=== PATIENT | female | born 2000 | race Caucasian/White ===

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

== ENCOUNTER 2021-11-23 11:35 | Day surgery (SDC) | payer OTHER ==
[2021-11-17 15:50] LABS: Absolute Lymphocytes (CBC) 3.1 K/uL (0.7-4.9); Hematocrit 41.2 % (36.0-45.0); Lymphocytes % 42.7 % (15.3-44.8); MCV 86.7 fL (80-100); MPV 6.8 fL (7.6-11.3); RBC Red Blood Cell Count 4.75 M/uL (3.86-4.86)
[2021-11-17 15:53] LABS: Specific Gravity 1.014 (1.005-1.030); Urine Bilirubin NEGATIVE (Negative); Urine Blood Negative (Negative); Urine Clarity Clear (Clear); Urine Color Colorless (Yellow); Urine Glucose NEGATIVE (Negative); Urine Protein NEGATIVE (Negative); Urine Urobilinogen Normal (Normal); Urine pH 6.5 (5.0-7.0)
[2021-11-22 08:15] LABS: SARS-CoV-2 Antigen Rapid Res Negative (Negative)
[2021-11-23] MEDS ORDERED: Ringers Lactate 1,000 ML IV ONE (11:49)
[2021-11-23] MEDS ORDERED: SCOPOLAMINE HYDROBROMIDE PATCH TD ONE (11:49)
[2021-11-23] MEDS ORDERED: FENTANYL CITR 100 MCG/2 ML ONE ×3 (13:40→16:42)
[2021-11-23] MEDS ORDERED: MIDAZOLAM HCL 2 MG/2 ML INJ ONE (13:41)
[2021-11-23] MEDS ORDERED: NA CHLORIDE 0.9% 2,000 ML ONE (13:41)
[2021-11-23] MEDS ORDERED: SILVER NITRATE 1 APPL TOP ONE (13:41)
[2021-11-23] MEDS ORDERED: ROCURONIUM 50 MG/5 ML VIAL IV ONE (13:41)
[2021-11-23] MEDS ORDERED: LIDOCAINE 1% W/EPI 1:100,000 10 ML VIAL ONE (13:41)
[2021-11-23] MEDS ORDERED: propofoL 200 MG/20 ML VIAL IV ONE (13:41)
[2021-11-23] MEDS ORDERED: NS 0.9% VIAL 0 ML ONE (13:42)
[2021-11-23] MEDS ORDERED: VASOPRESSIN 20 UNIT/ML VIAL ONE (13:43)
[2021-11-23] MEDS ORDERED: LIDOCAINE 1% MPF 5 ML VIAL ONE (13:44)
[2021-11-23] MEDS ORDERED: dexAMETHasone 10 MG/ML VIAL ONE (14:30)
[2021-11-23] MEDS ORDERED: KETOROLAC 30 MG/ML INJ ONE (14:30)
[2021-11-23] MEDS ORDERED: ONDANSETRON 4 MG/2 ML VIAL ONE (14:31)
[2021-11-23 15:03] LABS: Urine Specific Gravity/Preg 1.025 (1.005-1.030)
[2021-11-23] MEDS ORDERED: GLYCOPYRROLATE 0.2 MG/ML SYR ONE (15:30)
[2021-11-23] MEDS ORDERED: NEOSTIGMINE 1 MG/ML -10 ML VIAL ONE (15:31)
[2021-11-23] MEDS ORDERED: BUPIVACAINE 0.25% PF 30 ML VIAL IJ ONE ×2 (15:45)
[2021-11-23] MEDS ORDERED: Mastisol Adhesive Liq ONE (15:46)
[2021-11-23] MEDS ORDERED: HYDROCODONE/APAP 5/325 MG TAB PO PRN (15:54)
[2021-11-23] MEDS ORDERED: MEPERIDINE HCL 25 MG/ML SYR IM PRN (15:54)
[2021-11-23] MEDS ORDERED: PROMETHAZINE INJ 25 MG/ML AMP IV PRN (15:54)
[2021-11-23] MEDS ORDERED: IBUPROFEN 200 MG TAB PO PRN (15:54)
--- NOTE | 2021-11-23 15:59 | P.BOP ---
Preoperative diagnosis: AUB-O, deep dyspareunia, dysmenorrhea Postoperative diagnosis: same, endometriosis, rt ovarian mass Primary procedure: diag hysteroscopy, diag laparoscopy, endometriosis excision/fulgration Secondary procedure: rt ovarian mass removal (fibroma) Tufting Creeler: Tanya House Estimated blood loss: min Specimen: left yessica-ureteric endo, post CDS, rt ovarian solid mass, <1cm Findings: left yessica-ureteric endo, post CDS, rt ovarian solid mass, <1cm Anesthesia: General Complications: None Transferred to: Recovery Room Condition: Good
[2021-11-23] MEDS: HYDROMORPHONE HCL 1 MG/ML INJ ONE ×2 (16:23→16:28)
[2021-11-23 17:18] VITALS: BP 116/77; TEMP 98.4; O2SAT 97
[2021-11-23] MEDS ORDERED: HYDROCODONE/APAP 5/325 MG TAB ONE (17:34)
[2021-11-23] MEDS ORDERED: HOME MED 1 EA UNK (Venlafaxine Hcl [Effexor] 25 MG Tablet) PO SCH (21:00)
--- NOTE | 2021-11-24 03:12 | OP ---
Date of Procedure: 11/23/2021 Surgeon: Cate Bearden MD Environmental Services Supervisor: Tanya Stevens. Preoperative Diagnosis: AUB-O deep dyspareunia and dysmenorrhea. Postoperative Diagnosis: AUB-O deep dyspareunia and dysmenorrhea, endometriosis, right ovarian mass. Procedures Performed: Diagnostic hysteroscopy, diagnostic laparoscopy, endometriosis excision and fu lguration and right ovarian mass removal. Anesthesia: General and endotracheal. Estimated Blood Loss: Minimal. Complications: No complications. Drains: No drains. Condition: Patient's condition stable. Specimens: Left periureteric and posterior cul-de-sac endometriosis was fulgurated. Right ovarian s olid mass is less than 1 cm. Findings: The endometriosis appears to have mostly hemosiderin components on the peritoneum. There was not found to have glandular changes. The left lateral wall, the right lateral wall and the poste rior cul-de-sac, especially in the left pararectal space appeared to have these changes, most signifi cant of which were on the left periureteric area going onto the left distal uterosacral ligament. So , this was endometriosis that was from the underlying ureter. The lower 1/3rd of the pelvi c ureter dissected to the ureteric tunnel and the peritoneum was excised from here. The rest of the area, just fulguration was done as I did not believe that excision would really be well predictable i n terms of completion of the entire endometriotic burden in the patient. As this patient is only 21, there can be evolution of the endometriosis and maybe she will need anoth er procedure at a later point in time. Description Of Procedure: After informed consent was verified, the patient was taken back to OR, caesar christina in supine fashion on the operating table. General anesthesia was given. No antibiotics were ind icated. Abdomen, vulva, vagina, and perineum prepped and draped in a sterile fashion. Arriola was caesar christina to drain the bladder. Speculum placed to expose the cervix. Anterior lip grasped with 2 Allis c lamps. Uterus was retroflexed. A diagnostic SlimLine hysteroscope was introduced through the cervix into the cervix and the uterine canal. The canal was unremarkable. Both tubal ostia were well visu alized, no anatomical distortion. The scope was removed. Diagnostic uterine manipulator was introdu christina. This area was then draped. 1 cm infraumbilical incision was made with a scalpel after injecting with 0.25% Marcaine. Fascia was incised, tagged with 0 Vicryl sutures. A Felicity port was introduced under direct vision after the p eritoneum was entered sharply. After adequate insufflation, site of entry was checked. Upper abdomi nal surface was unremarkable. No evidence of endometriosis. The two 5 ports in the suprapubic and l eft lower quadrant were placed under direct vision after injecting Marcaine at the fascia and the ski n. Then, careful examination of the anterior cul-de-sac, lateral ruiz, posterior cul-de-sac, merry go round operator ior lateral ruiz, uterosacral ligament were all performed. The appendix appeared to be completely n ormal. All the findings are as dictated above, so started the peritoneal incision with scissors righ t between the uterosacral and the ureter. Then, the incision was extended with the help of the monop olar needle circumferentially. Then, the ureter was dissected from the underlying tissues by sharp d issection as well as with monopolar cautery using the needle carefully protecting the ureter and diss ecting away from the endometriotic implants. 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 Once the peritoneum was all peeled off from the periureteric area on the lateral wall, then peeled to wards the uterosacral ligament and excision was performed. The specimen was handed off for permanent pathology. In the left pararectal space, in the posterior cul-de-sac, there was slight discoloratio n of brownish hemosiderin implants, most likely beginning of endometriosis was cauterized. On the right lateral wall, there was similar very minimal findings. I did not excise any thing as th ere were no defined implants, just pigmentation seen. The ovarian mass was seen on the outer lateral aspect of the right ovary. It was less than 1 cm, but clearly there was a well-defined ovarian mass, most likely benign and a fibroma, so this was excised at the base with the help of monopolar scissors. Excellent hemostasis and thorough irrigation sucti on were performed. All the instruments were removed. Instrument and sponge counts were correct at t he end of the case. The patient tolerated the procedure well, injected with 0.25% Marcaine at all si kiet. Fascia at the umbilicus closed in 2 layers with 0 Vicryl sutures and subcutaneous closure with interrupted 3-0 chromic. The Arriola and the uterine manipulator were removed. Instrument, needle, an d sponge counts were correct. She was recovered from anesthesia and taken to PACU in stable conditio n. Her mom was debriefed about her findings. She has a 1-week followup appointment. ROWAN/ZEUS Voice ID: [id number] Report ID: [id number]
[2021-11-24] MEDS ORDERED: HOME MED 1 EA UNK (Hydroxyzine Hcl [Atarax] 10 MG Tablet) PO SCH (09:00)
[2021-11-24] MEDS ORDERED: DROSPIRENONE PO SCH (09:00)
[2021-11-24] MEDS ORDERED: ETHINYL ESTRADIOL PO SCH (09:00)
== END 2021-11-23 18:15 | disposition home or self-care (01) ==
LOC: OR 11:35
PROVIDERS: ATTEND Obstetrics & Gynecology
PROC: 0UBF4ZZ Excision of Cul-de-sac, Percutaneous Endoscopic Approach (ICD-10-PCS; 2021-11-23)
PROC: 0DBW4ZZ Excision of Peritoneum, Percutaneous Endoscopic Approach (ICD-10-PCS; 2021-11-23)
PROC: 0UB04ZZ Excision of Right Ovary, Percutaneous Endoscopic Approach (ICD-10-PCS; 2021-11-23)
PROC: 0UJD8ZZ Inspection of Uterus and Cervix, Via Natural or Artificial Opening Endoscopic (ICD-10-PCS; principal; 2021-11-23 13:00)
DX: N93.9 Abnormal uterine and vaginal bleeding, unspecified (principal); N92.6 Irregular menstruation, unspecified; N94.12 Deep dyspareunia; R10.2 Pelvic and perineal pain; R14.0 Abdominal distension (gaseous); F41.9 Anxiety disorder, unspecified; Z20.822 Contact with and (suspected) exposure to COVID-19
CPT/HCPCS: 58555; 58662; 85025; 36415 ×2; 86900; 86850; 81025; 86901; 88305; 81003; 87811; J2704; J2710; J2001; J2250; J3010 ×3; J1100; J1170; J7120; J7030; J2405; A4216

== ENCOUNTER 2022-09-23 20:40 | Emergency (ER) | payer OTHER ==
--- OUTSIDE RECORDS SUMMARY | 2022-09-23 20:43 | XMS REPORT | Continuity of Care Document ---
:2000 Author Organization [facility] t Address [address] [facility]. [address] [place] [address] Care Team Providers Name Role Phone WEI SHAWANDA Primary Care Physician Unavailable [email or web address]_Suleiman_S Attending Clinician Unavailable GARIMA BRINK Attending Clinician Unavailable Garima Brink DO Attending Clinician ADELINE ROSAS Attending Clinician Unavailable Adeline Rosas MD Attending Clinician RADIOLOGY Attending Clinician Unavailable Radiology Attending Clinician Unavailable Doctor Unassigned, Ken Caryl Attending Clinician Unavailable SARAH DELCID Attending Clinician Unavailable Tierney Kilpatrick MD Attending Clinician [email or web address]_Suleiman_S Admitting Clinician Unavailable ERI JACOBSON Admitting Clinician Unavailable Payers Payer Name Policy Type Policy Number Effective Date Expiration Date S rosalind [employer] (PPO) [id number] [place] [id number] 2017 EMPLOYEE-[employer] 00:00:00 Problems Condition Condition Condition Status Onset Resolution Last Treating Co mments Source Name Details Category Date Date Treatment Clinician Date Nexplanon Nexplanon Disease Active Uni vers in place in place 02-28 ity of 00:00: [place] 00 Medical Branch Allergies, Adverse Reactions, Alerts Allergy Allergy Status Severity Reaction(s) Onset Inactive Treating Comm ents Source Name Type Date Date Clinician CYCLOBEN DRUG Active Swelling Univer s ZAPRINE INGREDI - ity of 00:00: [place] 00 Medical Branch Cycloben Propensi Active Swelling Univ ers zaprine ty to 09-19 ity of adverse 00:00: [place] reaction 00 Medical s Branch NO KNOWN Drug Active Univers ALLERGIE Class ity of S [facility] Social History Social Habit Start Date Stop Date Quantity Comments Source History [facility] University o f Alcohol Comment [place] [facility] History [facility] o f Alcohol Std [place] [facility] Dr[facility] Branch History [facility] o f Alcohol Binge [place] [facility] Exposure to 2022-01-18 2022-01-28 Not sure [facility] SARS-CoV-2 00:00:00 15:38:00 [facility] (event) Branch Alcohol intake 2022-01-28 2022-01-28 Lifetime University of 00:00:00 00:00:00 non-drinker [facility] (finding) [place] Tobacco use and 2019-02-06 2019-02-06 Smokeless tobacco Un iversity of exposure 00:00:00 00:00:00 non-user [facility] History SDCO 2019-02-06 2019-02-06 1 University o f Alcohol Frequency 00:00:00 00:00:00 [facility] edical [place] Sex Assigned At [birth year] Universit y of 00:00:00 00:00:00 [facility] Smoking Status Start Date Stop Date Source Never smoked tobacco [facility] Medications Ordered Filled Start Stop Current Ordering Indication Dosage Frequency Signature Comments Components Source Medication Medication Date Date Medication? Clinician (SIG) Name Name NaCl 0.9% 2021-02- No 1000mL at 999 Uni vers (NS) bolus 03-31 mL/hr, ity of infusion 22:30: 23:53 1,000 mL, Jagjit as 1,000 mL 00 :00 IV Medical Infusion, Branch ONCE, 1 dose, On 01/28/22 at 1630, [place] acetaminoph 2021- No 650mg 650 mg, U nivers en 09-20 Oral, ity of (TYLENOL) 03:30: 03:32 ONCE, 1 [place] tablet 650 00 :00 dose, On Medic al mg Sun Branch 09/19/21 at 2230, [place] ibuprofen 2018-02 Yes 200mg Take 200 Uni vers 200 mg 2-11 mg by ity of tablet 19:19: mouth [place] 46 every 6 Medical (six) Branch hours as needed. ibuprofen 2018-02 Yes 200mg Take 200 Uni vers 200 mg 2-11 mg by ity of tablet 19:19: mouth [place] 46 every 6 Medical (six) Branch hours as needed. ibuprofen 2018-02 Yes 200mg Take 200 Uni vers 200 mg 2-11 mg by ity of tablet 19:19: mouth [place] 46 every 6 Medical (six) Branch hours as needed. ibuprofen 2018-02 Yes 200mg Take 200 Uni vers 200 mg 2-11 mg by ity of tablet 19:19: mouth [place] 46 every 6 Medical (six) Branch hours as needed. ibuprofen 2018-02 Yes 200mg Take 200 Uni vers 200 mg 2-11 mg by ity of tablet 13:19: mouth [place] 46 every 6 Medical (six) Branch hours as needed. ibuprofen 2018-02 Yes 200mg Take 200 Uni vers 200 mg 2-11 mg by ity of tablet 13:19: mouth [place] 46 every 6 Medical (six) Branch hours as needed. ibuprofen 2018-02 Yes 200mg Take 200 Uni vers 200 mg 2-11 mg by ity of tablet 13:19: mouth [place] 46 every 6 Medical (six) Branch hours as needed. ibuprofen 2018-02 Yes 200mg Take 200 Uni vers 200 mg 2-11 mg by ity of tablet 13:19: mouth [place] 46 every 6 Medical (six) Branch hours as needed. ibuprofen 2018-02 Yes 200mg Take 200 Uni vers 200 mg 2-11 mg by ity of tablet 13:19: mouth [place] 46 every 6 Medical (six) Branch hours as needed. Vital Signs Vital Name Observation Time Observation Value Comments Source Diastolic blood 2022-01-29 00:35:00 85 mm[Hg] [facility] Heart rate 2022-01-29 00:35:00 95 [facility] Respiratory rate 2022-01-29 00:35:00 18 /min [facility] Oxygen saturation in 2022-01-29 00:35:00 100 /min [facility] Arterial blood by [facility] Pulse oximetry Branch Systolic blood 2022-01-29 00:35:00 119 mm[Hg] [facility] Body height 2022-01-28 21:40:00 157.[address] [facility] Body weight 2022-01-28 21:40:00 54.[address] [facility] BMI 2022-01-28 21:40:00 21.95 kg/m2 [facility] Body temperature 2022-01-28 21:40:00 37.5 Korin [facility] Systolic blood 2021-09-20 03:50:49 107 mm[Hg] Univer sity of pressure [facility] Diastolic blood 2021-09-20 03:50:49 78 mm[Hg] [facility] Heart rate 2021-09-20 03:33:05 86 /min [facility] Body temperature 2021-09-20 03:33:05 36.5 Korin [facility] Respiratory rate 2021-09-20 03:33:05 16 /min [facility] Oxygen saturation in 2021-09-20 03:33:05 99 /min [facility] Arterial blood by [facility] Pulse oximetry [place] Body height 2021-09-20 02:27:00 157.5 cm [facility] Body weight 2021-09-20 02:27:00 55.339 kg [facility] BMI 2021-09-20 02:27:00 22.31 kg/m2 [facility] Procedures Procedure Date / Time Performing Clinician Source Performed RAPID INFLUENZA A/B 2022-01-28 23:51:00 [facility] POCT TEST 2022-01-28 22:05:00 [facility] COMP. METABOLIC PANEL 2022-01-28 22:04:00 Garima Brink [facility] ([id number]) [facility] CBC WITH DIFF 2022-01-28 22:04:00 Garima Brink [facility] URINALYSIS 2022-01-28 22:04:00 Garima Brink [facility] CONSENT/REFUSAL FOR 2022-01-28 21:35:51 [facility]assigned, [facility] Name Medical Branch NOTICE OF PRIVACY 2021-09-20 02:22:32 Doctor Unassigned, No [facility] Branch CONSENT/REFUSAL FOR 2021-09-20 02:22:08 Doctor Unassigned, No [facility]AT[facility] Name Medical Branch XR CHEST 2 VW 2021-08-23 17:43:18 Requisition, Paper Universit [facility] ASSIGNMENT OF BENEFITS 2021-06-22 21:28:54 Doctor Unassigned, No University [facility] US ABDOMEN COMPLETE 2019-11-27 22:51:26 Requisition, Paper [facility] ASSIGNMENT OF BENEFITS 2019-11-27 22:21:27 Doctor Unassigned, No [facility] CONSENT FOR 2019-02-28 06:01:00 Doctor Unassigned, No Univer [facility] Encounters Start End Encounter Admission Attending Care Care Encounter Source Date/Time Date/Time Type Type Clinicians Facility Department ID 2022-09-22 2022-09-22 Outpatient GC_GCBZW_Ka PRIV PRIV [id number] [facility] 00:00:00 00:00:00 diyala_S [id number] Medic al 2022-09-21 2022-09-21 Outpatient GC_GCBZW_Ka PRIV PRIV [id number] [facility] 00:00:00 00:00:00 diyala_S [id number] Medic al 2022-01-28 2022-01-28 [facility] [id number] Univers 15:43:00 18:39:00 GARIMA colon [facility] 2022-01-28 2022-01-28 [facility] [id number] Univers 15:43:00 18:39:00 [id number] [id number] [facility] [id number] [place] [address] Branch 2021-09-19 2021-09-19 Emergency [facility] [id number] Univers 21:29:00 22:53:00 ADELINE colon [facility] 2021-09-19 2021-09-19 Emergency [facility] [id number] Univers 21:29:00 22:53:00 Adeline Garnett [place] [id number] ity of [place] [id number] [facility] [id number] [facility] 084 Branch 2021-08-23 2021-08-23 Outpatient R RADIOLOGY [facility] [id number] Univers 12:24:47 23:59:00 ity of [facility] 2021-08-23 2021-08-23 Hospital Radiology [facility] [id number] Univers 12:24:47 23:59:00 Encounter [place] [id number] ity of [place] [id number] [place] [address] [id number] [facility] 807 Branch 2021-06-22 2021-06-22 Outpatient R RADIOLOGY [facility] [id number] Univers 16:34:29 23:59:00 ity of [facility] 2021-06-22 2021-06-22 Hospital Radiology [facility] [id number] Univers 16:34:29 23:59:00 Encounter [place] [id number] ity of [place] [id number] [place] [address] [id number] [facility] 807 Branch 2021-06-22 2021-06-22 Orders Doctor TRENA [id number] Univers 00:00:00 00:00:00 Only Unassigned, ADAN [id number] ity of Ken Caryl [facility] [id number] [facility] [id number] [facility] 009 Branch 2020-03-02 2020-03-02 Outpatient R BHAVIN, [facility] [id number] Univers 15:00:00 15:00:00 SARAH ity of [facility] 2019-11-27 2019-11-27 Hospital Radiology [facility] [id number] Univers 17:23:47 23:59:00 Encounter [place] [id number] ity of [place] 4.2.7.2.686 [facility] [id number] [facility] 806 [place] 2019-11-27 2019-11-27 Outpatient R RADIOLOGY [facility] [id number] Univers 00:00[facility]00 [facility] 2019-11-27 2019-11-27 Orders Doctor TRENA [id number] Univers 00:00:00 00:00:00 Only Unassigned, ADAN [id number] ity of Ken Caryl [facility] [id number] Jagjit as [id number] [address] 2019-11-19 2019-11-19 Outpatient R RADIOLOGY [facility] [id number] Univers 00:00:00 [facility]00[facility] 2019-04-19 2019-04-19 Telephone Tierney Kilpatrick [facility] [id number] Univers 00:00:00 00:00:00 Cam Dre [id number] i ty [facility] [id number] [place] [facility] [id number] Mn dical [address] 2019-02-28 2019-02-28 Orders Doctor TRENA [id number] Univers 00:00:00 00:00:00 Only Unassigned, ADAN [id number] ity of Ken Caryl [facility] [id number] Jagjit as [id number] [address] Results Test Description Test Time Test Comments Results Result Comments Source POCT TEST 2022-01-28 22:05:00 Test Item Value Reference Range Interpretation Comme nts POCT PREG (test code = 1605) negative On board controls acceptable with C Line (test code = 3574) present POCT PREG LOT # (test code = 3575) [id number] POCT PREG TEST DATE (test code = 3576) Lab Interpretation (test code = 76100-3) Normal [facility] [id number] 23:10:58 Normal right upper quadrant ultrasound. Preliminary Report Dictated by Resident: Regino Paniagua MD., have reviewed this study and agree with theabove report.ABDOMINAL ULTRASOUND, COMPLETE HISTORY: Stomach ache . COMPARISON: None. TECHNIQUE: Survey ultrasound imaging of the abdomen was performed includingcolor Doppler evaluation of the main portal vein with pharmacy sales representative imagesobtained. FINDINGS: LIVER: Normal in size in contour, measuring 15.4 cm. Normal parenchymalecho-texture is present. No focal hepatic lesion. ?Normal hepatopetal ?flowwithin the main portal vein. GALLBLADDER: No cholelithiasis, pericholecystic fluid, or gallbladderdistention. No sonographic Marlow's sign. The common bile duct measures 0.3cm. PANCREAS: The visualized portions of the pancreas are normal. SPLEEN: The spleen is normal in size, measuring 9.9 cm. KIDNEYS: The kidneys are normal in size, contour, and echotexture. Theright kidney measures 12.9 x 3.5 x 5.7 cm, and the left kidney .4 x 4.8 x 4.4 cm. No hydronephrosis. No ascites. The visualized suprarenal abdominal aorta measures1 cm. [facility], Radiant Results Inft User - 11/27/2019 6:12 PM CDTABDOMINAL ULTRASOUND, COMPLETEHISTORY:Stomach ache .COMPARISON: None.TECHNIQUE: Survey ultrasound imaging of the abdomen was performed includingcolor Doppler evaluation of the main portal vein with pharmacy sales representative imagesobtained. FINDINGS: LIVER: Normal in size in contour, measuring 15.4 cm. Normal parenchymalecho-texture is present. No focal hepatic lesion. Normal hepatopetal flowwithin the main portal vein. GALLBLADDER: No cholelithiasis, pericholecystic fluid, or gallbladderdistention. No sonographic Marlow's sign. The common bile duct measures 0.3cm.PANCREAS: The visualized portions of the pancreas are normal.SPLEEN: The spleen is normal in size, measuring 9.9 cm. KIDNEYS: The kidneys are normal in size, contour, and echotexture. Theright kidney measures 12.9 x 3.5 x 5.7 cm, and the left kidney pbigntfg31.4 x 4.8 x 4.4 cm. No hydronephrosis.No ascites. The visualized suprarenal abdominal aorta measures 1 cm.IMPRESSIONNormal rightupper quadrant ultrasound.Preliminary Report Dictated by Resident: Regino Ramirez MD., have reviewed this study and agree with theabove report. [facility]
[2022-09-23 23:20] LABS: Absolute Lymphocytes (CBC) 5.3 K/uL (0.7-4.9); Hematocrit 41.8 % (36.0-45.0); Lymphocytes % 51.1 % (15.3-44.8); MCV 83.9 fL (80-100); MPV 6.5 fL (7.6-11.3); RBC Red Blood Cell Count 4.98 M/uL (3.86-4.86)
[2022-09-23 23:29] LABS: Specific Gravity 1.011 (1.005-1.030); Urine Bilirubin NEGATIVE (Negative); Urine Blood Negative (Negative); Urine Clarity Clear (Clear); Urine Color Light-Yellow (Yellow); Urine Glucose NEGATIVE (Negative); Urine Protein NEGATIVE (Negative); Urine Urobilinogen Normal (Normal)
[2022-09-23 23:41] LABS: Albumin 4.4 g/dL (3.4-5.0); Bilirubin Total 0.5 mg/dL (0.2-1.0); Potassium 3.3 mEq/L (3.5-5.1); Protein, Total 7.8 g/dL (6.4-8.2)
--- NOTE | 2022-09-24 01:17 | ER ---
Nurse's Notes [facility] Name: Jasmin Singletary Age: 21 yrs Sex: Female : 2000 Arrival Date: 09/23/2022 Time: 20:40 Bed 13 Private MD: Diagnosis: Abdominal pain, unspecified Presentation: 09/23 21:21 Chief complaint: Patient states: RLQ abdominal pain X2 weeks that has been getting cm10 worse. pt complains that her RLQ is tender to the touch. Coronavirus screen: Client denies travel out of the [place] in the last 14 days. Ebola Screen: No symptoms or risks identified at this time. Initial Sepsis Screen: Does the patient meet any 2 criteria? No. Patient's initial sepsis screen is negative. Does the patient have a suspected source of infection? No. Patient's initial sepsis screen is negative. Risk Assessment: Do you want to hurt yourself or someone else? Patient reports no desire to harm self or others. Onset of symptoms was September 23, 2022. 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 - Social history:: Smoking status: unknown. - Family history:: not pertinent. Screenin:07 [facility] ED Fall Risk Assessment (Adult) History of falling in the last 3 months, cm10 including since admission No falls in past 3 months (0 pts) Confusion or Disorientation No (0 pts) Intoxicated or Sedated No (0 pts) Impaired Gait No (0 pts) Mobility Assist Device Used No (0 pt) Altered Elimination No (0 pt) Score/Fall Risk Level 0 - 2 = Low Risk Oriented to surroundings, Maintained a safe environment, Hourly rounding (assess needs \T\ fall precautionary measures) done. Abuse screen: Denies threats or abuse. Denies injuries from another. Nutritional screening: No deficits noted. Tuberculosis screening: No symptoms or risk factors identified. Assessment: 23:07 General: Appears in no apparent distress. uncomfortable, Behavior is calm, cooperative. cm10 Pain: Complains of pain in right lower quadrant. Neuro: No deficits noted. Level of Consciousness is awake, alert, obeys commands, Oriented to person, place, time, situation. Respiratory: No deficits noted. Airway is patent Respiratory effort is even, unlabored. GI: Abd is soft Abdomen is tender to palpation in right lower quadrant. 09/24 00:05 General: Appears comfortable, Behavior is calm, cooperative. Pain: Complains of pain in ha1 right lower quadrant Pain does not radiate. Pain currently is 6 out of 10 on a pain scale. Quality of pain is described as crampy, pressure. Neuro: Level of Consciousness is awake, alert, obeys commands, Oriented to person, place, time, situation. Cardiovascular: Patient's skin is warm and dry. Respiratory: Airway is patent Respiratory effort is even, unlabored, Respiratory pattern is regular, symmetrical. GI: Abdomen is flat, non-distended, Bowel sounds present X 4 quads. Reports lower abdominal pain. Derm: Skin is pink, warm \T\ dry. Musculoskeletal: Circulation, motion, and sensation intact. 01:00 Reassessment: Patient and/or family updated on plan of care and expected duration. Pain ha1 level reassessed. Patient is alert, oriented x 3, equal unlabored respirations, skin warm/dry/pink. Patient states feeling better. Patient states symptoms have improved. Vital Signs: 09/23 21:20 BP 126 / 94; Pulse 90; Resp 16; Temp 96.9(TE); Pulse Ox 100% on R/A; Weight 58.06 kg; cm10 Height 5 ft. 2 in. ; Pain 6/10; 23:00 BP 122 / 85; Pulse 67; Resp 18 S; Pulse Ox 100% on R/A; ha1 09/24 00:00 BP 121 / 87; Pulse 69; Resp 18 S; Temp 97.9; Pulse Ox 100% on R/A; ha1 00:50 BP 120 / 86; Pulse 73; Resp 15 S; Pulse Ox 100% on R/A; ha1 09/23 21:20 Body Mass Index 23.41 (58.06 kg, 157.48 cm) cm10 09/23 21:20 Pain Scale: Adult cm10 ED Course: 09/23 20:41 Patient arrived in ED. jj6 21:00 Jonathan Gupta MD is Attending Physician. rt 21:22 Triage completed. cm10 21:23 Arm band placed on Patient placed in waiting room. cm10 22:58 Parris Amado, RN is Primary Nurse. vc1 23:08 Patient has correct armband on for positive identification. Bed in low position. Call cm10 light in reach. Side rails up X2. Provided Education on: N/A. 23:15 Inserted saline lock: 20 gauge in right antecubital area, using aseptic technique. mc5 Blood collected. 23:17 Radiology exam delayed due to lab results not completed at this time. (BUN/Creatinine) sj test not completed at this time. IV insertion attempt and/or patient not having appropriate IV at this time. 09/24 00:34 CT Abd/Pelvis - IV Contrast Only In Process Unspecified. EDMS 01:38 No provider procedures requiring assistance completed. IV discontinued, intact, ha1 bleeding controlled, No redness/swelling at site. Pressure dressing applied. Administered Medications: No medications were administered Medication: 09/23 23:07 VIS not applicable for this client. cm10 Outcome: 09/24 01:16 Discharge ordered by MD. rt 01:39 Discharged to home via ambulance. ha1 01:39 Condition: stable 01:39 Discharge instructions given to patient, Instructed on discharge instructions, follow up and referral plans. Demonstrated understanding of instructions, follow-up care. 01:39 Patient left the ED. ha1 Signatures: Dispatcher [employer] EDNY Minerva Jordan Jennifer j6 Parris Amado, VERONICA RN vc1 Lian Villa RN RN ha1 Jonathan Gupta MD MD rt Marva [place] RN RN cm10 Anjelica Motley mc5 Corrections: (The following items were deleted from the chart) 00:48 00:00 BP 121 / 87; Pulse 69bpm; Resp 18bpm; Spontaneous; Pulse Ox 100% RA; ha1 ha1
--- NOTE | 2022-09-24 01:17 | EDPHYS ---
Physician Documentation [facility] Name: Jasmin Singletary Age: 21 yrs Sex: Female : 2000 Arrival Date: 09/23/2022 Time: 20:40 Bed 13 Private MD: ED Physician Jonathan Gupta HPI: 09/24 01:50 This 21 yrs old Female presents to ER via Ambulatory with complaints of Abdominal Pain. rt 01:50 Patient presents to the ED with 2 weeks of a right lower quadrant pain. She has seen rt her playground equipment erector states that everything looked okay. The pain has been persistent, has not been intermittent. It is aching in nature, nonradiating. There are no other associated symptoms. Symptoms are moderate severity, no other aggravating or alleviating factors.. 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 - Social history:: Smoking status: unknown. - Family history:: not pertinent. ROS: 09/24 01:50 Constitutional: Negative for fever, chills, and weight loss, Cardiovascular: Negative rt for chest pain, palpitations, and edema, Respiratory: Negative for shortness of breath, cough, wheezing, and pleuritic chest pain, MS/Extremity: Negative for injury and deformity, Skin: Negative for injury, rash, and discoloration, Neuro: Negative for headache, weakness, numbness, tingling, and seizure, Psych: Negative for depression, anxiety, suicide ideation, homicidal ideation, and hallucinations. Abdomen/GI: Positive for abdominal pain, Negative for nausea and vomiting. Exam: 01:50 Constitutional: This is a well developed, well nourished patient who is awake, alert, rt and in no acute distress. Head/Face: Normocephalic, atraumatic. Chest/axilla: Normal chest wall appearance and motion. Nontender with no deformity. No lesions are appreciated. Cardiovascular: Regular rate and rhythm with a normal S1 and S2. No gallops, murmurs, or rubs. Normal PMI, no JVD. No pulse deficits. Respiratory: Lungs have equal breath sounds bilaterally, clear to auscultation and percussion. No rales, rhonchi or wheezes noted. No increased work of breathing, no retractions or nasal flaring. Skin: Warm, dry with normal turgor. Normal color with no rashes, no lesions, and no evidence of cellulitis. MS/ Extremity: Pulses equal, no cyanosis. Neurovascular intact. Full, normal range of motion. Neuro: Awake and alert, GCS 15, oriented to person, place, time, and situation. Cranial nerves II-XII grossly intact. Motor strength 5/5 in all extremities. Sensory grossly intact. Cerebellar exam normal. Normal gait. Psych: Awake, alert, with orientation to person, place and time. Behavior, mood, and affect are within normal limits. 01:50 Abdomen/GI: Mild tenderness to the right lower quadrant without rebound, guarding, distention. Vital Signs: 09/23 21:20 BP 126 / 94; Pulse 90; Resp 16; Temp 96.9(TE); Pulse Ox 100% on R/A; Weight 58.06 kg; cm10 Height 5 ft. 2 in. ; Pain 6/10; 23:00 BP 122 / 85; Pulse 67; Resp 18 S; Pulse Ox 100% on R/A; ha1 09/24 00:00 BP 121 / 87; Pulse 69; Resp 18 S; Temp 97.9; Pulse Ox 100% on R/A; ha1 00:50 BP 120 / 86; Pulse 73; Resp 15 S; Pulse Ox 100% on R/A; ha1 09/23 21:20 Body Mass Index 23.41 (58.06 kg, 157.48 cm) cm10 09/23 21:20 Pain Scale: Adult cm10 MDM: 09/23 23:00 Patient medically screened. rt 09/24 01:50 Differential diagnosis: UTI, pyelonephritis, ureteral stone, appendicitis, ovarian rt cyst, endometriosis. Data reviewed: vital signs, nurses notes, lab test result(s), radiologic studies. Independent interpretation of the following test(s) in the Emergency Department CT Scan: My interpretation is No obstruction seen on interpretation of the CT scan images. Test considered but Not performed: Ultrasound Symptoms are not consistent with an ovarian torsion, ultrasound not indicated. Care significantly affected by the following chronic conditions: Endometriosis. Counseling: I had a detailed discussion with the patient and/or guardian regarding: the historical points, exam findings, and any diagnostic results supporting the discharge/admit diagnosis, lab results, radiology results, the need for outpatient follow up, to return to the emergency department if symptoms worsen or persist or if there are any questions or concerns that arise at home. 09/23 23:09 Order name: CBC with Diff; Complete Time: 23:47 rt 09/23 23:09 Order name: CMP; Complete Time: 23:47 rt 09/23 23:09 Order name: Lipase; Complete Time: 23:47 rt 09/23 23:09 Order name: Test, Urine; Complete Time: 23:47 rt 09/23 23:09 Order name: Urinalysis w/ reflexes; Complete Time: 23:47 rt 09/23 23:09 Order name: CT Abd/Pelvis - IV Contrast Only rt 09/23 23:09 Order name: IV Saline Lock; Complete Time: 23:15 rt 09/23 23:09 Order name: Labs collected and sent; Complete Time: 23:15 rt Administered Medications: No medications were administered Disposition Summary: 09/24/22 01:16 Discharge Ordered Location: Home rt Problem: an ongoing problem rt Symptoms: are unchanged rt Condition: Stable rt Diagnosis - Abdominal pain, unspecified rt Followup: rt - With: Private Physician - When: 2 - 3 days - Reason: Discharge Instructions: - Discharge Summary Sheet rt - Abdominal Pain, Adult rt Forms: - Medication Reconciliation Form rt - Thank You Letter rt - Antibiotic Education rt - Prescription Opioid Use rt - Patient Portal Instructions rt Signatures: Dispatcher [employer] Jonathan Navarro MD MD rt Marva Del Valle, RN RN cm10
[2022-09-24 02:02] VITALS: O2SAT 100
[2022-09-24 02:05] VITALS: TEMP 97.9
[2022-09-24 02:06] VITALS: BP 120/86
--- NOTE | 2022-09-25 17:03 | RAD REPORT ---
EXAM DESCRIPTION: CT of the abdomen and pelvi CLINICAL HISTORY: RLQ PAIN. COMPARISON: CT of the abdomen and pelvis from February 03, 2019. TECHNIQUE: CT of the abdomen and pelvis was performed following intravenous administration of iodina meri contrast. Oral contrast was not administered. Axial, coronal, and sagittal soft tissue window rec onstructions were created and sent to PACS. This exam was performed according to our departmental dose-optimization program, which includes autom ated exposure control, adjustment of the mA and/or kV according to patient size and/or use of iterati ve reconstruction technique. FINDINGS: Thoracic: No significant abnormality. Hepatobiliary: No concerning hepatic lesion identified. The portal veins are patent. The gallbladder is unremarkable. No biliary ductal dilatation. Pancreas: Unremarkable. Spleen: Unremarkable. Gastrointestinal: No evidence of bowel obstruction or perienteric inflammation. The appendix is dylan l. Small amount of fecal material throughout the colon and rectum. Adrenals: No abnormality identified in either adrenal gland. Renal: No concerning parenchymal abnormality in either kidney. No hydronephrosis or urolithiasis. Bladder/Reproductive: Unremarkable appearance of the urinary bladder by CT technique. Macro uterus Vascular/Lymphatics: No lymphadenopathy identified by CT size criteria. Abdominal aorta is normal in caliber. Musculoskeletal: No concerning osseous lesion identified. Fluid / peritoneum: Trace pelvic free fluid. No free intraperitoneal air identified. IMPRESSION: 1. No acute abnormality identified in the abdomen or pelvis by CT. 2. Normal appendix. Electronically signed by: Samia Heller MD 09/24/2022 1:03 AM CDT Due to temporary technical issues with the PACS/Fluency reporting system, reports are being signed by the in house radiologists without review as a courtesy to insure prompt reporting. The interpreting radiologist is fully responsible for the content of the report.
== END 2022-09-24 01:39 | disposition home or self-care (01) ==
LOC: ER 20:40
DX: R10.31 Right lower quadrant pain (principal); Z88.8 Allergy status to other drugs, medicaments and biological substances
CPT/HCPCS: 85025; 36415; 81025; 81003; 83690; 80053; 74177; 99284; Q9967

== ENCOUNTER 2023-12-27 14:38 | Emergency (ER) | payer OTHER ==
--- OUTSIDE RECORDS SUMMARY | 2023-12-27 14:41 | XMS REPORT | Continuity of Care Document ---
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 Name Role Phone SHAWANDA CARVAJAL Primary Care Physician Unavailab sandeep STYLES_GCBZW_Maryannea_S Attending Clinician UnavailGARIMA Inman Attending Clinician Unavailab Garima Lam DO Attending Clinician [phone] ADELINE SAUCEDO Attending Clinician Unavailable Adeline Saucedo MD Attending Clinician [phone] RADIOLOGY Attending Clinician Unavailable Radiology Attending Clinician Unavailable Doctor Unassigned, [place] Attending Clinician U SARAH Dent Attending Clinician Unavailable Tierney Kilpatrick MD Attending Clinician STEPHANI_GCBZW_Maryannea_S Admitting Clinician UnavailERI Root Admitting Clinician Unavailable Payers Payer Name Policy Type Policy Number Effective Date Expirati on Date Source [employer]ET[employer] (EPO) [id number] 2013 00:00:00 [employer]ET[employer] (PPO) [id number] [employer] [id number] 2017 00:00:00 Problems Condition Name Condition Details Condition Category Status Onset Date Resolution Date Last Treatment Date Treating Clinician Comments Source 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 2024-0 5-08 00:00: 00 [facility] Epilepsy Epilepsy Problem Active 4-30 00:00: 00 [facility] Pain in pelvis Pain in Pelvis Problem Active 4-30 00:00: 00 [facility] Abnormal uterine bleeding Abnormal Uterine Bleeding Problem Active 4-30 00:00: 00 [facility] Increased frequency of urination Increased Frequency of Urination Problem Active 4-03 00:00: 00 [facility] Initiation of depot contracept ion done Initiation of Depot Contracept ion Done Problem Active 4-03 00:00: 00 [facility] Dysmenorrh ea Dysmenorrh ea Problem Active 2-27 00:00: 00 [facility] Endometrio sis of pelvic peritoneum Endometrio sis of Pelvic Peritoneum Problem Active 2021-02 1-28 00:00: 00 [facility] Deep pain on intercours e Deep Pain on Intercours e Problem Active 9-15 00:00: 00 [facility] Anxiety disorder Anxiety Disorder Problem Active 7-28 00:00: 00 [facility] Irregular periods Irregular Periods Problem Active 0 3-31 00:00: 00 [facility] Contracept ion care education Contracept ion Care Education Problem Active 3-31 00:00: 00 [facility] Pelvic and perineal pain Pelvic and Perineal Pain Problem Active 3-31 00:00: 00 [facility] Cyst of right ovary Cyst of Right Ovary Problem Active 3-31 00:00: 00 [facility] Nex[address]on in [address] Nexplanon in place Disease Active 1-02 00:00: 00 [facility] Allergies, Adverse Reactions, Alerts Allergy Name Allergy Type Status Severity Reaction(s) Onset Date Inactive Date Treating Clinician Comments Source CYCLOBEN ZAPRINE DRUG INGREDI Active Swelling 7-24 00:00: 00 [facility] Cycloben zaprine Propensi ty to adverse reaction s Active Swelling 7-24 00:00: 00 [facility] Cycloben zaprine Allergy to substanc e Active Severe Anaphylaxis [facility] NO KNOWN ALLERGIE S Drug Class Active [facility] Social History Social Habit Start Date Stop Date Quantity Comments Source History SDOH Alcohol Comment [facility] History SDOH Alcohol Std Drinks [facility] History SDOH Alcohol Binge [facility] Exposure to SARS-CoV-2 (event) 2022-01-18 00:00:00 2022-01-28 15:38:00 Not sure [facility] Alcohol intake 2022-01-28 00:00:00 2022-01-28 00:00:00 Lifetime non-drinker (finding) [facility] Tobacco use and exposure 2019-02-06 00:00:00 2019-02-06 00:00:00 Smokeless tobacco non-user [facility] History SDOH Alcohol Frequency 2019-02-06 00:00:00 2019-02-06 00:00:00 1 [facility] Sex Assigned At 2000 00:00:00 2000 00:00:00 [facility] Smoking Status Start Date Stop Date Source Never Smoker [facility] Medications Ordered Medication Name Filled Medication Name Start Date Stop Date Current Medication? Ordering Clinician Indication Dosage Frequency Signature (SIG) Comments Components Source NaCl 0.9% (NS) bolus infusion 1,000 mL 2021-02 22:30: 00 01-28 23:53 :00 No 1000mL at 999 mL/hr, 1,000 mL, IV Infusion, ONCE, 1 dose, On Mon01/28/22 at 1630, [facility] acetaminoph en (TYLENOL) tablet 650 mg 09-20 03:30: 00 09-20 03:32 :00 No 650mg 650 mg, Oral, ONCE, 1 dose, On Mon09/19/21 at 2230, [place] ibuprofen 200 mg tablet 2018-02 19:19: 46 Yes 200mg Take 200 mg by mouth every 6 (six) hours as needed. [facility] ibuprofen 200 mg tablet 2018-02 13:19: 46 Yes 200mg Take 200 mg by mouth every 6 (six) hours as needed. [facility] albuterol sulfate HFA 90 mcg/actuati on aerosol inhaler PRN albuterol sulfate HFA 90 mcg/actuati on aerosol inhaler PRN No albuterol sulfate HFA 90 mcg/actuat ion aerosol inhaler PRN [facility] epinephrine 0.3 mg/0.3 mL injection, auto-inject or INJECT 0.3 ML INTRAMUSCUL MISBAH DIRECTED epinephrine 0.3 mg/0.3 mL injection, auto-inject or INJECT 0.3 ML INTRAMUSCUL MISBAH DIRECTED No epinephrin e 0.3 mg/0.3 mL injection, auto-injec tor INJECT 0.3 ML INTRAMUSCU LARLY DIRECTED [facility] hydroxyzine HCl 50 mg tablet hydroxyzine HCl 50 mg tablet No hydroxyzin e HCl 50 mg tablet [facility] ibuprofen 800 mg tablet PRN ibuprofen 800 mg tablet PRN No ibuprofen 800 mg tablet PRN [facility] levetiracet am 250 mg tablet TAKE 1 TABLET BY MOUTH EVERY DAY levetiracet am 250 mg tablet TAKE 1 TABLET BY MOUTH EVERY DAY No levetirace tinsley 250 mg tablet TAKE 1 TABLET BY MOUTH EVERY DAY [facility] Ubrelvy 100 mg tablet Ubrelvy 100 mg tablet No Ubrelvy 100 mg tablet [facility] venlafaxine 37.5 mg tablet TAKE 1 TABLET BY MOUTH EVERY DAY venlafaxine 37.5 mg tablet TAKE 1 TABLET BY MOUTH EVERY DAY No venlafaxin e 37.5 mg tablet TAKE 1 TABLET BY MOUTH EVERY DAY [facility] Myfembree 40 mg-1 mg-0.5 mg tablet Take 1 tablet every day by oral route for 90 days. Myfembree 40 mg-1 mg-0.5 mg tablet Take 1 tablet every day by oral route for 90 days. No 1 Q1D Myfembree 40 mg-1 mg-0.5 mg tablet Take 1 tablet every day by oral route for 90 days. [facility] Vital Signs Vital Name Observation Time Observation Value Comments S ource Height 2023-06-27 00:00:00 62.5 [in_i] [facility] BP Diastolic 2023-06-27 00:00:00 74 mm[Hg] [facility] Body Weight 2023-06-27 00:00:00 160 [lb_av] [facility] BMI (Body Mass Index) 2023-06-27 00:00:00 28.8 kg/m2 [facility] BP Systolic 2023-06-27 00:00:00 110 mm[Hg] [facility] Systolic blood pressure 2022-01-29 00:35:00 119 mm[Hg] [facility] Diastolic blood pressure 2022-01-29 00:35:00 85 mm[Hg] [facility] Heart rate 2022-01-29 00:35:00 95 /min [facility] Respiratory rate 2022-01-29 00:35:00 18 /min [facility] Oxygen saturation in Arterial blood by Pulse oximetry 2022-01-29 00:35:00 100 /min [facility] Body height 2022-01-28 21:40:[address] [facility] Body weight 2022-01-28 21:40:[address] [facility] BMI 2022-01-28 21:40:00 21.95 kg/m2 [facility] Body temperature 2022-01-28 21:40:00 37.5 Korin [facility] Systolic blood pressure 2021-09-20 03:50:49 107 mm[Hg] [facility] Diastolic blood pressure 2021-09-20 03:50:49 78 mm[Hg] [facility] Heart rate 2021-09-20 03:33:05 86 /min Unive [facility] Body temperature 2021-09-20 03:33:05 36.5 Korin [facility] Respiratory rate 2021-09-20 03:33:05 16 /min [facility] Oxygen saturation in Arterial blood by Pulse oximetry 2021-09-20 03:33:05 99 /min [facility] Body height 2021-09-20 02:27:[address] [facility] Body weight 2021-09-20 02:27:[address] [facility] BMI 2021-09-20 02:27:00 22.31 kg/m2 [facility] Procedures Procedure Date / Time Performed Performing Clinician Source US, transvaginal 2023-06-30 00:00:00 [facility] RAPID INFLUENZA A/B 2022-01-28 23:51:00 Tiki Pagan ra [facility] POCT TEST 2022-01-28 22:05:00 Tiki Pagan ra [facility] COMP. METABOLIC PANEL ([id number]) 2022-01-28 22:04:00 Garima Pagan [facility] CBC WITH DIFF 2022-01-28 22:04:00 Garima Pagan U [facility] URINALYSIS 2022-01-28 22:04:00 [facility]US[facility] FOR [facility]AGNOSIS AND TREATMENT 2022-01-28 21:35:51 Doctor Unassigned, [place] [facility] Hysteroscopy 2021-11-23 00:00:00 Jamie edflorinda NOTICE OF PRIVACY PRACTICES 2021-09-20 02:22:32 Doctor Unassigned, [place] [facility] CONSENT/REFUSAL FOR DIAGNOSIS AND TREATMENT 2021-09-20 02:22:08 Doctor Unassigned, [place] [facility] XR CHEST 2 VW 2021-08-23 17:43:18 Requisition, Paper U [facility] ASSIGNMENT OF BENEFITS 2021-06-22 21:28:54 Docto r Unassigned, [place] [facility] US ABDOMEN COMPLETE 2019-11-27 22:51:26 Requisition, P aper [facility] ASSIGNMENT OF BENEFITS 2019-11-27 22:21:27 Docto r Unassigned, [place] [facility] CONSENT FOR CONTRACEPTION 2019-02-28 06:01:00 Doctor Unassigned, [place] [facility] Tonsillectomy 2007-02-27 00:00:00 [facility] Encounters Start Date/Time End Date/Time Encounter Type Admission Type Attending [facility] Care Facility Care Department Encounter ID Source 2023-07-05 00:00:00 2023-07-05 00:00:00 Katya Howell, ROHIT: [address], [place] [address] , Ph. [facility]ly [facility] - GC_GCBZW_Mirta Valdez* [id number] [facility] 2023-06-29 00:00:00 2023-06-29 00:00:00 Cate Bearden MD: [address], [address], [place] [address] , Ph. [facility] - GC_GCBZW_La golden [place]* [id number] [facility] 2023-06-27 00:00:00 2023-06-27 00:00:00 Katya Howell, EMPLOYMENT DIRECTOR: [address], [place] [address] , Ph. [facility] - GC_GCBZW_Mirta franks [place]* [id number] [facility] 2023-01-25 00:00:00 2023-01-25 00:00:00 Outpatient GC_GCBZW_Ka diyala_S PRIV PRIV [id number] [facility] 2022-10-04 00:00:00 2022-10-04 00:00:00 Outpatient GC_GCBZW_Ka diyala_S PRIV PRIV [id number] [facility] 2022-10-04 00:00:00 2022-10-04 00:00:00 Outpatient GC_GCBZW_Ka diyala_S PRIV PRIV [id number] [facility] 2022-09-22 00:00:00 2022-09-22 00:00:00 Outpatient GC_GCBZW_Ka diyala_S PRIV PRIV [id number] [facility] 2022-09-21 00:00:00 2022-09-21 00:00:00 Outpatient GC_GCBZW_Ka diyala_S PRIV PRIV [id number] [facility] 2022-01-28 15:43:00 2022-01-28 18:39:00 Emergency GARIMA WEAVER [facility] ERT [id number] [facility] 2022-01-28 15:43:00 2022-01-28 18:39:00 Emergency Garima Pagan [facility] [id number] 350.1.13.10 4.2.7.2.686 [id number] [facility] 2021-09-19 21:29:00 2021-09-19 22:53:00 Emergency X ADELINE SAUCEDO [facility] ERT [id number] [facility] 2021-09-19 21:29:00 2021-09-19 22:53:00 Emergency Adeline Saucedo S [facility] [id number] 350.1.13.10 4.2.7.2.686 [id number] [facility] 2021-08-23 12:24:47 2021-08-23 23:59:00 Outpatient R RADIOLOGY [facility] [id number] [facility] 2021-08-23 12:24:47 2021-08-23 23:59:00 Hospital Encounter Radiology [facility] [id number] 350.1.13.10 4.2.7.2.686 [id number] [facility] 2021-06-22 16:34:29 2021-06-22 23:59:00 Hospital Encounter Radiology [facility] [id number] 350.1.13.10 4.2.7.2.686 [id number] [facility] 2021-06-22 16:34:29 2021-06-22 23:59:00 Outpatient R RADIOLOGY [facility] [id number] [facility] 2021-06-22 00:00:00 2021-06-22 00:00:00 Orders Only Doctor Unassigned, [place] [facility] [id number] 350.1.13.10 4.2.7.2.686 [id number] [facility] 2020-03-02 15:00:00 2020-03-02 15:00:00 Outpatient R SARAH DELCID [facility] [id number] [facility] 2019-11-27 17:23:47 2019-11-27 23:59:00 Hospital Encounter Radiology [facility] [id number] 350.1.13.10 4.2.7.2.686 [id number] [facility] 2019-11-27 00:00:00 2019-11-27 00:00:00 Outpatient R RADIOLOGY [facility] [id number] [facility] 2019-11-27 00:00:00 2019-11-27 00:00:00 Orders Only Doctor Unassigned, [place] [facility] [id number] 350.1.13.10 4.2.7.2.686 [id number] [facility] 2019-11-19 00:00:00 2019-11-19 00:00:00 Outpatient R RADIOLOGY [facility] [id number] [facility] 2019-04-19 00:00:00 2019-04-19 00:00:00 Telephone Tierney Kilpatrick [facility] Professio [facility] [id number] 350.1.13.10 4.2.7.2.686 [id number] [facility] 2019-02-28 00:00:00 2019-02-28 00:00:00 Orders Only Doctor Unassigned, [place] [facility] [id number] 350.1.13.10 4.2.7.2.686 [id number] [facility] Results Test Description Test Time Test Comments Results Result Co mments Source [facility] [id number] 22:05:00* Test Item Value Reference Range Interpretation Comme nts POCT PREG (test code = 1605) negative On board controls acceptable with C Line (test code = 3574) present POCT PREG LOT # (test code = 3575) [id number] POCT PREG TEST DATE ( test code = 3576) Lab Interpretation (test cod e = [id number]) Normal [facility] [id number] 23:10:58Normal right upper quadrant ultrasound. Preliminary Report Dictated by Resident: Regino Paniagua ?MD. Wilmer, have reviewed this study and agree with theabove report.ABDOMINAL ULTRASOUND, COMPLETE HISTORY: Stomach ache . COMPARISON: None. TECHNIQUE: Survey ultrasound imaging of the abdomen was performed includingcolor Doppler evaluation of the main portal vein with sales representative sales manager imagesobtained. FINDINGS: LIVER: Normal in size in contour, measuring 15.4 cm. Normal parenchymalecho-texture is present. No focal hepatic lesion. ?Normal hepatopetal ?flowwithin the main portal vein.GALLBLADDER: No cholelithiasis, pericholecystic fluid, or gallbladderdistention. No sonographic Marlow's sign. The common bile duct measures 0.3cm. PANCREAS: The visualized portions of the pancreas are normal. SPLEEN: The spleen is normal in size, measuring 9.9 cm. KIDNEYS: The kidneys are normal in size, contour, and echotexture. Theright kidney measures 12.9 x 3.5 x 5.7 cm, and the left kidney m cljzeuf63.4 x 4.8 x 4.4 cm. No hydronephrosis. No ascites. The visualized suprarenal abdominal aorta measures 1 cm. [facility], Radiant Results Inft User - 11/27/2019 6:12 PM CDTABDOMINAL ULTRASOUND, COMPLETEHISTORY: Stomach ache .COMPARISON: None.TECHNIQUE: Survey ultrasound imaging of the abdomen was pe rformed includingcolor Doppler evaluation of the main portal vein with sales representative sales manager imagesobtained. FINDINGS: LIVER: Normal in size in contour, measuring 15.4 cm. Normal parenchymalecho-texture is present. No focal hepatic lesion. Normal hepatopetal flowwithin the main portal vein. GALLBLADDER: No cholelithiasis, pericholecystic fluid, or gallbladderdistention. No sonographic Marlow's sign. Thecommon bile duct measures 0.3cm.PANCREAS: The visualized portions of the pancreas are normal.SPLEEN: The spleen is normal in size, measuring 9.9 cm. KIDNEYS: The kidneys are normal in size, contour, and echotexture. Theright kidney measures 12.9 x 3.5 x 5.7 cm, and the left kidney jomrtliq28.4 x 4.8 x 4.4 cm. No hydronephrosis.No ascites. The visualized suprarenal abdominal aorta measures 1 cm.IMPRESSIONNormal right upper quadrant ultrasound.Preliminary Report Dictated by Resident: Regino Ramirez MD., have reviewed this study and agree with theabove report. [facility]
[2023-12-27 16:21] LABS: Absolute Basophils 0.1 K/uL (0-0.5); Absolute Eosinophils 0.2 K/uL (0-0.5); Absolute Lymphocytes (CBC) 3.6 K/uL (0.7-4.9); Absolute Monocytes 0.5 K/uL (0.1-1.3); Absolute Neutrophil 4.4 K/uL (1.8-8.0); Basophils % 0.8 % (0-1.3); Eosinophils % 2.1 % (0-4.4); Hematocrit 39.9 % (36.0-45.0); Hemoglobin 13.6 g/dL (12.0-15.0); Lymphocytes % 41.2 % (15.3-44.8); MCHC 34.1 g/dL (32.0-36.0); MCV 84.9 fL (80-100); MPV 7.3 fL (7.6-11.3); Monocytes % 5.7 % (3.3-12.3); Neutrophils % 50.2 % (41.7-73.7); Platelets 245 thou/uL (152-406); Red Cell Distribution Width 13.1 % (12.1-15.2)
[2023-12-27] MEDS ORDERED: ONDANSETRON 4 MG/2 ML VIAL ONE (16:27)
[2023-12-27] MEDS ORDERED: KETOROLAC 30 MG/ML INJ ONE (16:27)
[2023-12-27] MEDS ORDERED: NA CHLORIDE 0.9% 1,000 ML ONE (16:28)
[2023-12-27 16:32] LABS: Specific Gravity 1.025 (1.005-1.030); Sqamous Epithelial <5 /HPF (None Seen); Urine Bacteria None Seen /HPF (<20); Urine Bilirubin NEGATIVE (Negative); Urine Blood Negative (Negative); Urine Clarity Turbid (Clear); Urine Color Yellow (Yellow); Urine Culture Reflex Order NOT NEEDED; Urine Glucose NEGATIVE (Negative); Urine Ketones NEGATIVE (Negative); Urine Microscopic Reflex YN ORDER UMIC; Urine Mucus Slight /HPF (None Seen); Urine Nitrite NEGATIVE (Negative); Urine Protein NEGATIVE (Negative); Urine RBC <5 /HPF (None Seen); Urine Urobilinogen Normal (Normal); Urine WBC <5 /HPF (<5)
[2023-12-27 16:33] LABS: Specific Gravity 1.025 (1.005-1.030)
[2023-12-27 16:39] LABS: AST/SGOT < 10 U/L (15-37); Albumin 4.2 g/dL (3.4-5.0); Albumin/Globulin Ratio 1.3 (1.1-1.8); Alkaline Phosphatase 116 U/L (45-117); Anion Gap 6.7 mEq/L (5.0-15.0); BUN Blood Urea Nitrogen 8 mg/dL (7-18); Bicarbonate 26 mEq/L (21-32); Bilirubin Total 0.6 mg/dL (0.2-1.0); Globulin 3.3 g/dL (2.3-3.5); Glomerular Filtration Rate 112 ml/min (=/>90); Glucose Level 85 mg/dL (74-106); Lipase 39 U/L (13-75); Potassium 3.7 mEq/L (3.5-5.1); Protein, Total 7.5 g/dL (6.4-8.2); Sodium Level 137 mEq/L (136-145)
[2023-12-27 16:40] LABS: ALT/SGPT < 14 U/L (13-56)
--- NOTE | 2023-12-27 17:39 | RAD REPORT ---
EXAMINATION: CT ABDOMEN AND PELVIS WITH CONTRAST CLINICAL INDICATION: ABD PAIN TECHNIQUE: CT abdomen and pelvis was performed, after the administration of IV contrast, as per depar tment protocol. Axial, sagittal and coronal reconstructions were obtained. One or more of the following dose reduction techniques were used: Automated exposure control, adjustment of the mA and k V according to patient size, and iterative reconstruction. Unless otherwise specified, incidental findings do not require dedicated imaging follow-up. COMPARISON: 09/24/2022 FINDINGS: LOWER CHEST: The visualized lung bases are clear. LIVER: Normal in size and contour. No focal lesion. Grossly unremarkable gallbladder. SPLEEN: Normal size. No focal lesion. PANCREAS: No mass, ductal dilation, or yessica-pancreatic fluid. ADRENALS: Normal; no mass. KIDNEYS: Normal size and contour. No hydronephrosis. GASTROINTESTINAL TRACT: No evidence of free air, significant intra-abdominal free fluid, bowel obstru ction or abscess. APPENDIX: Normal appendix. LYMPH NODES: No lymphadenopathy. MUSCULOSKELETAL: No acute or suspicious osseous abnormality. ADDITIONAL FINDINGS: . Mild pelvic free fluid. There is a rounded cystic lesion in the left adnexa me asuring 2.9 cm. IMPRESSION: 2.9 cm cystic lesion in left adnexa, transvaginal ultrasound of the recommended. Mild pelvic free fluid.
--- NOTE | 2023-12-27 18:23 | RAD REPORT ---
EXAMINATION: US PELVIS TRANSVAGINAL WITH DOPPLER CLINICAL INDICATION: Female 23 years old. ABD PAIN TECHNIQUE: Real-time ultrasonography of the pelvis was performed transvaginally. Color and spectral D oppler evaluation of the ovaries was performed. COMPARISON: No prior exam. FINDINGS: UTERUS AND CERVIX: The uterus measures 6.2 x 4.3 x 3.7 cm (cervix to fundus x AP x transverse). The u terus is normal. No masses seen The endometrium is normal, 9 mm in thickness. RIGHT OVARY: Normal. The right ovary measures 2.8 x 1.9 x 1.7 cm. Normal color and spectral Doppler evaluation of the right ovary.. LEFT OVARY: Normal. The left ovary measures 3.5 x 2.0 x 2.7 cm. Normal color and spectral Doppler evaluation of the left ovary.. 2.3 x 2.1 echogenic probable complic ated cyst. FREE FLUID: Mild free fluid in the pelvis. ADDITIONAL FINDINGS: IMPRESSION: 23 mm echogenic indeterminate cyst left ovary. No evidence of torsion. Mild free fluid is seen in the pelvis. Recommendations for f/u of ovarian complex cysts (1): Endometrioma: <= 7 cm: US f/u 6-12 wks. If not surgically resected, US f/u annually. >7 cm: Consider MR w/IVC or surgical evaluation. If not surgically resected, US f/u annually. Dermoid: <= 5 cm: MR w/IV contrast. If not surgically resected, US f/u annually. >5 cm: Surgical evaluation. If not surgically resected, MR w/IVC; then US f/u annually Indeterminate cyst ? multiple thin <=3 mm septations: Any size in any age: Consider surgical evaluation. Indeterminate cyst ? non-hyperechoic nodule w/o blood flow: Any size in any age: Consider MR w/IVC or surgical evaluation. Indeterminate cyst ? other, not classic for but suggestive of hemorrhagic cyst, endometrioma or dermoid: Pre-menopause: <= 7 cm: US f/u 6-12 weeks. If unchanged, continue f/u with US or consider MR w/IVC. If these do not confirm endometrioma or dermoid, consider surgical evaluation. >7 cm: Consider MR w/IVC or surgical evaluation. Post-menopause (>=1 year from last menstrual period): Any size: Consider surgical evaluation. Cyst worrisome for malignancy (thick, irregular >=3 mm septations or nodule with blood flow): Any size in any age: Consider surgical evaluation. (1) Recommendations based upon the 2010 SRU Consensus Conference Statement on the Management of Asymptomatic Ovarian and Other Adnexal Cysts Imaged at US: Radiology. 2009;256(3):943-54
--- NOTE | 2023-12-27 18:55 | EDPHYS ---
Physician Documentation [facility] Name: Jasmin Singletary Age: 23 yrs Sex: Female : 2000 Arrival Date: 12/27/2023 Time: 14:38 Bed 25 Private MD: ED Physician Wei Meléndez HPI: 12/26 23:41 This 23 yrs old Female presents to ER via Ambulatory with complaints of Abdominal Pain. kb 23:41 Pt is a 23 year old female who presents for periumbilical pain that started at 0330 kb this morning and has now migrated to [facility]. Denies fever. Pain aggravated by palpation. No alleviating factors. Denies vomiting, diarrhea, urinary symptoms. . Historical: - Allergies: 14:53 Cyclobenzaprine; cm10 - PMHx: 14:53 depressive disorder; depressive disorder; Endometriosis; mitral valve prolapse; Seizure;cm10 - Immunization history:: Adult Immunizations up to date. - Infectious Disease History:: Denies. - Social history:: Smoking status: Reported history of juuling and/or vaping. ROS: 19:08 Constitutional: As per HPI kb Exam: 19:08 Constitutional: This is a well developed, well nourished patient who is awake, alert, kb and in no acute distress. Head/Face: Normocephalic, atraumatic. ENT: Moist Mucous membranes Cardiovascular: Regular rate Respiratory: Respirations even and unlabored. No increased work of breathing. Talking in full sentences Skin: Warm, dry with normal turgor. Normal color. MS/ Extremity: Pulses equal, no cyanosis. Neurovascular intact. Full, normal range of motion. Neuro: Awake and alert, GCS 15, oriented to person, place, time, and situation. 19:08 Abdomen/GI: Inspection: abdomen appears normal, Bowel sounds: normal, Palpation: soft, in all quadrants, mild abdominal tenderness, in the right lower quadrant, Vital Signs: 14:52 BP 115 / 81; Pulse 104; Resp 18; Temp 98.6; Pulse Ox 100% ; Weight 66.68 kg; Height 5 cm10 ft. 2 in. ; Pain 8/10; 18:15 BP 108 / 76; Pulse 91; Resp 16; Pulse Ox 100% on R/A; jb4 19:38 BP 107 / 73; Pulse 83; Resp 16; Pulse Ox 97% on R/A; jb4 14:52 Body Mass Index 26.89 (66.68 kg, 157.48 cm) cm10 14:52 Pain Scale: Adult cm10 MDM: 14:44 Medical Screening Exam initiated kb 23:40 Differential diagnosis: appendicitis, Ovarian Torsion, urinary tract infection, ovarian kb cyst. Data reviewed: vital signs, nurses notes. Historians other than the Patient: Parent: mother. Counseling: I had a detailed discussion with the patient and/or guardian regarding the historical points, exam findings, and any diagnostic results supporting the discharge/admit diagnosis, lab results, radiology results, the need for outpatient follow up, a family practitioner, to return to the emergency department if symptoms worsen or persist or if there are any questions or concerns that arise at home. 12/26 14:51 Order name: CBC with Diff; Complete Time: 16:25 cm10 12/26 14:51 Order name: CMP; Complete Time: 16:53 cm10 12/26 14:51 Order name: Lipase; Complete Time: 16:53 cm10 12/26 14:51 Order name: Urinalysis w/ reflexes; Complete Time: 16:32 cm10 12/26 16:21 Order name: Test, Urine; Complete Time: 16:34 EDMS 12/26 14:51 Order name: CT Abd/Pelvis - IV Contrast Only; Complete Time: 17:40 cm10 12/26 17:41 Order name: US Transvaginal Study (Probe); Complete Time: 18:28 kb 12/26 14:51 Order name: IV Saline Lock; Complete Time: 16:19 cm10 12/26 14:51 Order name: Labs collected and sent; Complete Time: 16:19 cm10 Administered Medications: 16:30 Drug: TORadol - Ketorolac IVP 15 mg IVP once Route: IVP; Site: left antecubital; jb4 17:00 Follow up: Response: No adverse reaction; Marked relief of symptoms; Pain is decreased jb4 16:30 Drug: Ondansetron IVP 4 mg IVP once; over 2 minutes Route: IVP; Site: left antecubital; jb4 17:00 Follow up: Response: No adverse reaction; Marked relief of symptoms jb4 16:30 Drug: NS 0.9% IV 1000 ml IV at 1 bolus Per protocol; to be given as a bolus over 60 jb4 minutes Route: IV; Rate: 1 bolus; Site: left antecubital; 17:30 Follow up: Response: No adverse reaction; IV Status: Completed infusion; IV Intake: jb4 1000ml Disposition: 12/27 07:44 Co-signature as Attending Physician, Wei Meléndez MD I reviewed the patient's care rn provided by the Advanced Practice Provider and agree with the diagnosis and treatment plan. Disposition Summary: 12/27/23 18:54 Discharge Ordered Notes: Location: Home kb Condition: Stable kb Diagnosis - Other ovarian cysts kb Followup: kb - With: Emergency Department - When: As needed - Reason: Worsening of condition Followup: kb - With: Private Physician - When: 2 - 3 days - Reason: Recheck today's complaints, Continuance of care, Re-evaluation by your physician Discharge Instructions: - Discharge Summary Sheet kb - Ovarian Cyst, [id number] kb Forms: - Medication Reconciliation Form kb - Antibiotic Education kb - Prescription Opioid Use kb - Patient Portal Instructions kb - Leadership Thank You Letter kb Prescriptions: - Diclofenac Sodium 75 mg Oral tablet, delayed release (enteric coated) - take 1 tablet ORAL route 2 times per day As needed; 30 tablet; Refills: 0, kb Product Selection Permitted Signatures: Dispatcher [employer] EDMS Kylah Valdez, DRY CHAIN WORKER-C DRY CHAIN WORKER-Ckb Wei Meléndez MD MD rn Bryson, James RN VERONICA jb4 Marva Del Valle RN RN cm10 Corrections: (The following items were deleted from the chart) 12/26 14:51 14:51 CBC+H.LAB.BRZ ordered. EDMS EDMS 14:51 14:51 COMPREHENSIVE METABOLIC PANEL+C.LAB.BRZ ordered. EDMS EDMS 14:51 14:51 LIPASE+C.LAB.BRZ ordered. EDMS EDMS 14:51 14:51 Urinalysis+U.LAB.BRZ ordered. EDMS EDMS 14:52 14:52 Abdomen Pelvis W Con+CT.RAD.BRZ ordered. EDMS EDMS 16:21 14:52 TEST, SERUM+SC.LAB.BRZ ordered. EDMS EDMS 23:42 23:41 Pt is a 23 year old female who presents for periumbilical pain that started at kb 0330 this morning and has now migrated to [facility]. Denies fever. . kb
--- NOTE | 2023-12-27 18:55 | ER ---
Nurse's Notes [facility] Name: Jasmin Singletary Age: 23 yrs Sex: Female : 2000 Arrival Date: 12/27/2023 Time: 14:38 Bed 25 Private MD: Diagnosis: Other ovarian cysts Presentation: 12/26 14:52 Chief complaint: Patient states: Umbilical pain onset at 0330. Pt states that the pain cm10 is now in her lower abdomen. Coronavirus screen: Client denies travel out of the [place] in the last 14 days. Ebola Screen: Patient denies travel to an Ebola-affected area in the 21 days before illness onset. No symptoms or risks identified at this time. Initial Sepsis Screen: Does the patient meet any 2 criteria? HR > 90 bpm. Does the patient have a suspected source of infection? No. Patient's initial sepsis screen is negative. Risk Assessment: Do you want to hurt yourself or someone else? Patient reports no desire to harm self or others. Onset of symptoms was December 27, 2023. 14:52 Method Of Arrival: Ambulatory cm10 14:52 Acuity: NOÉ 3 cm10 Triage Assessment: 14:54 General: Appears in no apparent distress. comfortable, Behavior is calm, cooperative. cm10 Neuro: No deficits noted. Level of Consciousness is awake, alert, obeys commands, Oriented to person, place, time, situation, Appropriate for age. Respiratory: No deficits noted. Airway is patent Respiratory effort is even, unlabored, Respiratory pattern is regular, symmetrical. Historical: - Allergies: 14:53 Cyclobenzaprine; cm10 - PMHx: 14:53 depressive disorder; depressive disorder; Endometriosis; mitral valve prolapse; Seizure;cm10 - Immunization history:: Adult Immunizations up to date. - Infectious Disease History:: Denies. - Social history:: Smoking status: Reported history of juuling and/or vaping. Screenin:15 [facility] ED Fall Risk Assessment (Adult) History of falling in the last 3 months, jb4 including since admission No falls in past 3 months (0 pts) Confusion or Disorientation No (0 pts) Intoxicated or Sedated No (0 pts) Impaired Gait No (0 pts) Mobility Assist Device Used No (0 pt) Altered Elimination No (0 pt) Score/Fall Risk Level 0 - 2 = Low Risk Oriented to surroundings, Maintained a safe environment. Abuse screen: Denies threats or abuse. Nutritional screening: No deficits noted. Tuberculosis screening: No symptoms or risk factors identified. Assessment: 15:15 Reassessment: Patient appears in no apparent distress at this time. Patient and/or jb4 family updated on plan of care and expected duration. Pain level reassessed. Patient is alert, oriented x 3, equal unlabored respirations, skin warm/dry/pink. 17:28 Reassessment: Patient appears in no apparent distress at this time. Patient and/or jb4 family updated on plan of care and expected duration. Pain level reassessed. Patient is alert, oriented x 3, equal unlabored respirations, skin warm/dry/pink. back from CT. 19:38 Reassessment: Patient appears in no apparent distress at this time. Patient and/or jb4 family updated on plan of care and expected duration. Pain level reassessed. Patient is alert, oriented x 3, equal unlabored respirations, skin warm/dry/pink. Vital Signs: 14:52 BP 115 / 81; Pulse 104; Resp 18; Temp 98.6; Pulse Ox 100% ; Weight 66.68 kg; Height 5 cm10 ft. 2 in. ; Pain 8/10; 18:15 BP 108 / 76; Pulse 91; Resp 16; Pulse Ox 100% on R/A; jb4 19:38 BP 107 / 73; Pulse 83; Resp 16; Pulse Ox 97% on R/A; jb4 14:52 Body Mass Index 26.89 (66.68 kg, 157.48 cm) cm10 14:52 Pain Scale: Adult cm10 ED Course: 14:42 Patient arrived in ED. mg5 14:44 Kylah Valdez FNP-C is [facility]. kb 14:44 Wei Meléndez MD is Attending Physician. kb 14:53 Triage completed. cm10 14:54 Arm band placed on Patient placed in waiting room. cm10 15:13 Radiology exam delayed due to lab results not completed at this time. (BUN/Creatinine). nj 15:13 Radiology exam delayed due to test not completed at this time. nj 15:13 Radiology exam delayed due to IV insertion attempt and/or patient not having nj appropriate IV at this time. 17:24 CT Abd/Pelvis - IV Contrast Only In Process Unspecified. EDMS 17:28 Lyon, Wilfredo, RN is Primary Nurse. jb4 18:14 Transvaginal Study (Probe) In Process Unspecified. EDMS 18:15 Patient has correct armband on for positive identification. Bed in low position. Call jb4 light in reach. Side rails up X 1. Provided Education on: discharge instructions.. 18:15 No provider procedures requiring assistance completed. jb4 19:40 IV discontinued, intact, bleeding controlled, No redness/swelling at site. Pressure jb4 dressing applied. Administered Medications: 16:30 Drug: TORadol - Ketorolac IVP 15 mg IVP once Route: IVP; Site: left antecubital; jb4 17:00 Follow up: Response: No adverse reaction; Marked relief of symptoms; Pain is decreased jb4 16:30 Drug: Ondansetron IVP 4 mg IVP once; over 2 minutes Route: IVP; Site: left antecubital; jb4 17:00 Follow up: Response: No adverse reaction; Marked relief of symptoms jb4 16:30 Drug: NS 0.9% IV 1000 ml IV at 1 bolus Per protocol; to be given as a bolus over 60 jb4 minutes Route: IV; Rate: 1 bolus; Site: left antecubital; 17:30 Follow up: Response: No adverse reaction; IV Status: Completed infusion; IV Intake: jb4 1000ml Medication: 18:15 VIS not applicable for this client. jb4 Intake: 17:30 IV: 1000ml; Total: 1000ml. jb4 Outcome: 18:54 Discharge ordered by MD. leonardo 19:40 Discharged to home ambulatory, jb4 19:40 Condition: stable 19:40 Discharge instructions given to patient, Instructed on discharge instructions, follow up and referral plans. medication usage, Demonstrated understanding of instructions, follow-up care, medications, Prescriptions given X 1, 19:41 Patient left the ED. jb4 Signatures: Dispatcher [employer] EDMS Kylah Valdez, HEAVY MEDIA OPERATOR-C HEAVY MEDIA OPERATOR-Wilfredo Mendoza, RN RN jb4 Giuseppe Henley Clarissa, RN RN cm10 Jessica Layton mg5 Corrections: (The following items were deleted from the chart) 19:40 18:15 IV discontinued, intact, bleeding controlled, No redness/swelling at site. jb4 Pressure dressing applied, jb4
[2023-12-27 20:12] VITALS: TEMP 98.6
[2023-12-27 20:14] VITALS: BP 107/73; O2SAT 97
== END 2023-12-27 19:41 | disposition home or self-care (01) ==
LOC: ER 14:38
DX: N83.299 Other ovarian cyst, unspecified side (principal)
CPT/HCPCS: 85025; 81001; 36415; 81025; 83690; 80053; 74177; 76830; Q9967; J2405; J7030; 96361; 96374; 96375; 99284